=== PATIENT | male | born 1980 | race Caucasian/White ===

== ENCOUNTER 2019-03-22 10:19 | Emergency (ER) | payer OTHER ==
[~2019-03-22] VITALS: Ht 182.9 cm; Wt 88.2 kg
[2019-03-22] MEDS ORDERED: AMOX875T2 (10:25)
[2019-03-22] MEDS ORDERED: TUMS500C PO (11:39)
--- NOTE | 2019-03-22 11:42 | REP ---
PA and lateral chest: There are no comparisons. There is a right lower lobe infiltrate. The lung mistry otherwise clear. The cardiac size is normal. The blanca, mediastinum, and skeletal structures are unremarkable. Impression: Right lower lobe infiltrate. Electronically Signed by Gavino Ac MD 03/22/2019 11:33 A
--- NOTE | 2019-03-22 11:46 | REP ---
KUB: Single view. HISTORY: Constipation. FINDINGS: There are surgical clips and sutures in the right lower quadrant. There are prostate calcifications. There are clips in the right upper quadrant. The bowel gas pattern is normal. Psoas margins and flank stripes are intact. IMPRESSION: Normal bowel gas pattern. No large or small bowel dilation seen. Postoperative clips right lower quadrant and right upper quadrant. Prostate calcifications. Otherwise negative. Electronically Signed by Kvng Mccabe MD 03/22/2019 12:40 P
[2019-03-22 11:55] LABS: BASO % 0.2 % (0.0-1.0); EOS # 0.2 10^3/uL (0.0-0.5); EOS % 1.5 % (0.0-3.0); HEMATOCRIT 45.3 % (42.0-52.0); HEMOGLOBIN 15.6 g/dl (13.5-17.5); LYMPH # 1.5 10^3/uL (1.5-5.0); MEAN CORPUSCULAR HEMOGLOBIN 30.8 pg (27.0-33.0); MEAN CORPUSCULAR HGB CONC 34.4 g/dl (32.0-36.5); MEAN CORPUSCULAR VOLUME 89.3 fl (80.0-96.0); MONO # 1.1 10^3/uL (0.0-0.8); MONO % 9.8 % (0.0-5.0); NEUTROPHILS # 8.8 10^3/uL (1.5-8.5); NEUTROPHILS % 75.2 % (36.0-66.0); PLATELET COUNT, AUTOMATED 219 10^3/uL (150-450); RED BLOOD COUNT 5.07 10^6/uL (4.30-6.10); WHITE BLOOD COUNT 11.7 10^3/uL (4.0-10.0)
[2019-03-22 12:19] LABS: ALBUMIN 3.2 GM/DL (3.2-5.2); ALT/SGPT 59 U/L (12-78); BILIRUBIN,DIRECT 0.1 MG/DL (0.0-0.2); BILIRUBIN,TOTAL 0.4 MG/DL (0.2-1.0); BLOOD UREA NITROGEN 13 MG/DL (7-18); CALCIUM LEVEL 8.9 MG/DL (8.5-10.1); CARBON DIOXIDE LEVEL 29 MEQ/L (21-32); CHLORIDE LEVEL 103 MEQ/L (98-107); CREATININE FOR GFR 1.05 MG/DL (0.70-1.30); GLOMERULAR FILTRATION RATE > 60.0 (>60); GLUCOSE, FASTING 105 MG/DL (70-100); LIPASE 155 U/L (73-393); POTASSIUM SERUM 3.8 MEQ/L (3.5-5.1); SODIUM LEVEL 139 MEQ/L (136-145); TOTAL PROTEIN 7.7 GM/DL (6.4-8.2)
[2019-03-22 12:26] LABS: INFLUENZA A AMPLIFICATION NEGATIVE (NEGATIVE); INFLUENZA B AMPLIFICATION NEGATIVE (NEGATIVE)
[2019-03-22 12:57] VITALS: BP 125/74
== END 2019-03-22 13:06 | disposition home or self-care (01) ==
LOC: M ED 10:19
DX: J18.9 Pneumonia, unspecified organism (principal); K21.9 Gastro-esophageal reflux disease without esophagitis; Z79.2 Long term (current) use of antibiotics; Z79.899 Other long term (current) drug therapy

== ENCOUNTER 2019-07-20 10:43 | Emergency (ER) | payer OTHER ==
[~2019-07-20] VITALS: Ht 182.9 cm; Wt 93.6 kg
[~2019-07-20 10:43] MED LIST: AMOX875T2; TUMS500C PO
[2019-07-20] MEDS ORDERED: IBUP-1114 PO (10:51)
--- NOTE | 2019-07-20 11:47 | REP ---
Chest x-ray: Two views. History: Chest heaviness . Comparison study: March 22, 2019 . Findings: The lungs are well inflated and free of infiltrate. The pleural angles are sharp. The heart size is normal. Pulmonary vasculature is not increased. No significant bony abnormality is seen. Impression: Negative chest x-ray. Electronically Signed by Kvng Mccabe MD 07/20/2019 11:39 A
[2019-07-20] MEDS ORDERED: ALBUTEROL SULFATE 2.5 MG/0.5 ML INH NEB SOLN NEB ONE ×2 (12:00→13:15)
[2019-07-20 12:20] LABS: BASO % 0.6 % (0.0-1.0); EOS # 0.2 10^3/uL (0.0-0.5); EOS % 2.9 % (0.0-3.0); HEMATOCRIT 44.6 % (42.0-52.0); HEMOGLOBIN 15.2 g/dl (13.5-17.5); LYMPH # 2.2 10^3/uL (1.5-5.0); LYMPH % 32.3 % (24.0-44.0); MEAN CORPUSCULAR HEMOGLOBIN 30.4 pg (27.0-33.0); MEAN CORPUSCULAR HGB CONC 34.1 g/dl (32.0-36.5); MEAN CORPUSCULAR VOLUME 89.2 fl (80.0-96.0); MONO # 0.6 10^3/uL (0.0-0.8); MONO % 9.3 % (0.0-5.0); NEUTROPHILS # 3.8 10^3/uL (1.5-8.5); NEUTROPHILS % 54.8 % (36.0-66.0); PLATELET COUNT, AUTOMATED 211 10^3/uL (150-450); WHITE BLOOD COUNT 6.9 10^3/uL (4.0-10.0)
[2019-07-20 12:38] LABS: ERYTHROCYTE SEDIMENTATION RATE 4 mm/hr (0-15)
[2019-07-20 12:57] LABS: BLOOD UREA NITROGEN 13 MG/DL (7-18); C REACTIVE PROTEIN QUANTITATIV < 0.30 MG/DL (0.00-0.30); CALCIUM LEVEL 8.9 MG/DL (8.5-10.1); CARBON DIOXIDE LEVEL 29 MEQ/L (21-32); CHLORIDE LEVEL 107 MEQ/L (98-107); CPK CREATINE PHOSPHOKINASE 374 U/L (39-308); CREATININE FOR GFR 0.96 MG/DL (0.70-1.30); GLOMERULAR FILTRATION RATE > 60.0 (>60); GLUCOSE, FASTING 92 MG/DL (70-100); MB/CK RELATIVE INDEX 1.07 (< OR =4); POTASSIUM SERUM 4.2 MEQ/L (3.5-5.1); SODIUM LEVEL 140 MEQ/L (136-145); TROPONIN I < 0.02 NG/ML (< 0.10)
[2019-07-20 13:53] LABS: INFLUENZA A AMPLIFICATION NEGATIVE (NEGATIVE); INFLUENZA B AMPLIFICATION NEGATIVE (NEGATIVE)
[2019-07-20] MEDS ORDERED: ISOVUE-370 76% 100ML VIAL (Q9967) As Ordered ONE (14:04)
--- NOTE | 2019-07-20 15:19 | REP ---
CT pulmonary angiogram: With IV contrast. History: Chest pain, shortness of breath. Comparison studies: No comparison study. Contrast dose: 75 mL of Isovue [address] technique: Helical scanning is acquired and overlapping 1.5 mm and contiguous 3 mm axial images are reformatted. In addition, maximum intensity projection and multiplanar re-formation images are generated in sagittal and coronal imaging projections. CT pulmonary angiographic findings: There is good opacification in the pulmonary arterial tree. There is no filling defect or vessel cutoff seen to suggest pulmonary embolus. Thoracic aorta enhances homogeneously without evidence of aneurysm or dissection. There is a very small sliding-type hiatal hernia. No pleural or pericardial effusion is seen. No hilar or mediastinal mass or adenopathy is observed. The lung mistry are free of infiltrate. There is a granulomatous calcification in the right middle lobe at the right lung base. There is a tiny 3 mm nodule in the right upper lobe on page 27 of 105 in series 502 of today's study. There is minimal linear plate-like atelectasis in the right lower lobe. There is a second tiny calcified granuloma in the right middle lobe medially. There are two tiny noncalcified granulomatous nodules in the right base as well. Impression: No CT evidence of pulmonary embolus. Granulomatous changes in the lung mistry. Small sliding-type hiatal hernia. Gallbladder surgically absent. Otherwise negative. Electronically Signed by Kvng Mccabe MD 07/20/2019 06:01 P
[2019-07-20] MEDS ORDERED: MEDR4PAK PO (15:20)
[2019-07-20] MEDS ORDERED: OMEP40CA97 PO (15:20)
[2019-07-20] MEDS ORDERED: VENTAER INH (15:20)
[2019-07-20 15:23] VITALS: BP 129/76
--- NOTE | 2019-07-22 06:17 | ECGEPIP ---
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
== END 2019-07-20 16:05 | disposition home or self-care (01) ==
LOC: M ED 10:43
DX: K21.9 Gastro-esophageal reflux disease without esophagitis (principal); K44.9 Diaphragmatic hernia without obstruction or gangrene; R79.9 Abnormal finding of blood chemistry, unspecified; Z79.899 Other long term (current) drug therapy
CPT/HCPCS: 36415; 71046; 71275; 80048; 82550; 82553; 85025; 85652; 86140; 87631; 93005; 94640; 99284; Q9967